=== PATIENT | female | born 1990 | race African-American/Black ===

== ENCOUNTER 2020-11-28 14:30 | Emergency (ER) | payer OTHER ==
[~2020-11-28] VITALS: Ht 162.6 cm; Wt 66.2 kg
[2020-11-28 14:36] VITALS: TEMP 97.8
[2020-11-28 18:58] LABS: PLATELET COUNT 356 K/uL (152-353)
[2020-11-28 19:03] LABS: POTASSIUM 3.9 mmol/L (3.6-5.2)
[2020-11-29 00:10] VITALS: BP 143/84
== END 2020-11-29 00:16 | disposition home or self-care (01) ==
LOC: ED 14:30
PROVIDERS: Family Medicine
DX: K21.9 Gastro-esophageal reflux disease without esophagitis (principal); K29.70 Gastritis, unspecified, without bleeding
CPT/HCPCS: 36415; 80053; 81025; 82150; 83690; 85027; 96365; 96375; 96376; 99284; J2175; J2405; J3490; Q9963